=== PATIENT | male | born 1940 | race Caucasian/White ===

== ENCOUNTER 2020-11-25 17:00 | Inpatient (IN) | payer MEDICARE, OTHER ==
[~2020-11-25] VITALS: Ht 177.8 cm; Wt 81.5 kg
--- NOTE | 2020-11-25 17:21 | NUR ---
DR CRADOZA AT BS.
[2020-11-25] MEDS ORDERED: METOPROLOL 1 MG/ML, 5ML IVPush ONE ×2 (17:30→18:30)
[2020-11-25] MEDS ORDERED: SODIUM CHLORIDE FLUSH 10ML SYR IVF ONE (17:30)
--- NOTE | 2020-11-25 17:30 | NUR ---
REPEAT EKG DONE
[2020-11-25] MEDS ORDERED: METOPROLOL 1 MG/ML, 5ML ONE ×2 (17:39→18:45)
[2020-11-25 17:55] LABS: BASOPHILS % (AUTO) 1 % (0-1); EOSINOPHILS % (AUTO) 1 % (1-7); LYMPHOCYTES % (AUTO) 13 % (22-44); MEAN CORPUSCULAR HEMOGLOBIN 29.1 pg (27.5-34.5); MEAN CORPUSCULAR HGB CONC 32.1 g/dL (33.2-36.2); MEAN PLATELET VOLUME 7.3 fL (7.4-10.4); MONOCYTES % (AUTO) 9 % (2-9); NEUTROPHILS % (AUTO) 76 % (42-75); PLATELET COUNT 262 x10^3/uL (130-400); RED BLOOD COUNT 4.33 x10^6/uL (4.38-5.82); RED CELL DISTRIBUTION WIDTH 15.8 % (9.4-14.8)
[2020-11-25 17:56] LABS: MD NO
[2020-11-25 18:03] LABS: INTERNATIONAL NORMALIZED RATIO 1.38 (0.93-1.1); PROTHROMBIN TIME 14.6 Seconds (9.6-11.5)
[2020-11-25 18:04] LABS: ALANINE AMINOTRANSFERASE 38 U/L (12-78); ALBUMIN 2.9 g/dL (3.4-5.0); CALCIUM 9.2 mg/dL (8.5-10.1); CHLORIDE 105 mmol/L (98-107); CREATININE 1.51 mg/dL (0.7-1.3)
[2020-11-25 18:09] LABS: ALKALINE PHOSPHATASE 201 U/L (45-117); BILIRUBIN,TOTAL 1.9 mg/dL (0.2-1.0); TOTAL PROTEIN 7.8 g/dL (6.4-8.2)
--- NOTE | 2020-11-25 18:12 | NUR ---
U/S IN PROGRESS. LOPRESSOR GIVEN. PT'S NEPHEW IN ROOM
[2020-11-25 18:17] LABS: ANION GAP 4 mmol/L (5-15)
--- NOTE | 2020-11-25 19:01 | NUR ---
MONITOR: A-FIB, RATE 111-120. WILL UPDATE ERP
--- NOTE | 2020-11-25 19:10 | NUR ---
LOPRESSOR, 2ND DOSE, GIVEN. IV SITE PATENT. SIDE RAILS UP X2. CARDIAC MONITORING IN PROGRESS: A-FIB
[2020-11-25] MEDS ORDERED: ENOXAPARIN 60 MG/0.6 ML ONE (19:20)
[2020-11-25] MEDS: ENOXAPARIN 60 MG/0.6 ML SQ SCH (19:23)
--- NOTE | 2020-11-25 19:23 | NUR ---
LOVENOX GIVEN PER EMAR. HR: [id number]
--- NOTE | 2020-11-25 19:25 | NUR ---
URINAL EMPTIED OF 500ML URINE
[2020-11-25] MEDS ORDERED: METO25TA35 PO (19:29)
[2020-11-25] MEDS ORDERED: FURO20TA3 PO (19:29)
[2020-11-25] MEDS ORDERED: ATOR10TA9 PO (19:29)
[2020-11-25] MEDS ORDERED: WARF2.5T32 PO (19:29)
[2020-11-25] MEDS ORDERED: SPIR25TA5 PO (19:29)
--- NOTE | 2020-11-25 19:31 | NUR ---
DR CARDOZA AT BS
[2020-11-25] MEDS ORDERED: FUROSEMIDE 40 MG/4 ML ONE (19:41)
[2020-11-25] MEDS ORDERED: COLCHICINE 0.6 MG CAPSULE ONE (19:41)
--- NOTE | 2020-11-25 19:47 | NUR ---
EKG AT BS
--- NOTE | 2020-11-25 19:54 | NUR ---
LASIX AND COCHICINE GIVEN PER EMAR.
[2020-11-25] MEDS ORDERED: FUROSEMIDE 40 MG/4 ML IV ONE (20:00)
[2020-11-25] MEDS ORDERED: COLCHICINE 0.6 MG CAPSULE PO ONE (20:00)
--- NOTE | 2020-11-25 20:08 | NUR ---
TURKEY SANDWICH PROVIDED TO PT
[2020-11-25] MEDS ORDERED: OXYcodone IR 5MG TABLET PO PRN (21:00)
[2020-11-25] MEDS ORDERED: POLYETHYLENE GLYCOL 17 GM PACKET PO PRN (21:00)
[2020-11-25] MEDS ORDERED: Enoxaparin 1 mg/kg protocol SQ SCH (21:00)
[2020-11-25] MEDS: METOPROLOL TARTRATE 50 MG TAB PO SCH (21:00)
[2020-11-25] MEDS ORDERED: BISACODYL 10 MG SUPP PR PRN (21:00)
[2020-11-25] MEDS ORDERED: ONDANSETRON ODT 4 MG PO PRN (21:00)
[2020-11-25 21:20] LABS: TROPONIN I 0.042 ng/mL (0.000-0.045)
--- NOTE | 2020-11-25 22:08 | NUR ---
CALLED RECEIVING UNIT
--- NOTE | 2020-11-25 22:16 | NUR ---
PT REPORT TO HELDER GIMENEZ FOR ROOM 519
[2020-11-25 23:03] VITALS: BP 95/60
[2020-11-25] MEDS: SODIUM CHLORIDE FLUSH 10ML SYR IVF SCH (23:53)
[2020-11-25] MEDS: ATORVASTATIN 10 MG TABLET PO SCH (23:53)
[2020-11-26] VITALS: BP 93/59
[2020-11-26 02:04] VITALS: BP 87/55
[2020-11-26 02:45] LABS: BASOPHILS % (AUTO) 1 % (0-1); EOSINOPHILS % (AUTO) 2 % (1-7); LYMPHOCYTES % (AUTO) 17 % (22-44); MEAN CORPUSCULAR HEMOGLOBIN 29.6 pg (27.5-34.5); MEAN CORPUSCULAR HGB CONC 32.9 g/dL (33.2-36.2); MEAN PLATELET VOLUME 7.2 fL (7.4-10.4); MONOCYTES % (AUTO) 11 % (2-9); NEUTROPHILS % (AUTO) 70 % (42-75); PLATELET COUNT 247 x10^3/uL (130-400); RED BLOOD COUNT 3.92 x10^6/uL (4.38-5.82); RED CELL DISTRIBUTION WIDTH 15.2 % (9.4-14.8)
[2020-11-26 02:52] LABS: ANION GAP 3 mmol/L (5-15); CALCIUM 8.4 mg/dL (8.5-10.1); CHLORIDE 106 mmol/L (98-107); CREATININE 1.58 mg/dL (0.7-1.3)
[2020-11-26 02:57] LABS: TROPONIN I 0.045 ng/mL (0.000-0.045)
[2020-11-26 04:04] LABS: MD NO
[2020-11-26] MEDS: ACETAMINOPHEN 325 MG TABLET PO PRN (04:42)
[2020-11-26 07:42] VITALS: BP 107/62
[2020-11-26] MEDS: ENOXAPARIN 60 MG/0.6 ML SQ SCH (08:26)
[2020-11-26] MEDS: FUROSEMIDE 20 MG/2 ML IV SCH ×2 (08:27→17:23)
[2020-11-26] MEDS: METOPROLOL TARTRATE 50 MG TAB PO SCH ×2 (08:27→21:51)
[2020-11-26] MEDS: SPIRONOLACTONE 25 MG TABLET PO SCH (08:27)
[2020-11-26] MEDS: SENNA/DOCUSATE TABLET PO SCH (08:28)
[2020-11-26] MEDS: SODIUM CHLORIDE FLUSH 10ML SYR IVF SCH ×2 (08:28→21:51)
[2020-11-26 08:40] LABS: TROPONIN I 0.063 ng/mL (0.000-0.045)
[2020-11-26 12:40] VITALS: BP 93/61
[2020-11-26] MEDS: WARFARIN 1 MG TABLET PO-COUM SCH (19:04)
[2020-11-26 20:02] VITALS: BP 99/58
[2020-11-26] MEDS: ATORVASTATIN 10 MG TABLET PO SCH (21:51)
[2020-11-26] MEDS: ENOXAPARIN 80 MG/0.8 ML SQ SCH (21:51)
[2020-11-27 01:31] VITALS: BP 94/56
[2020-11-27] MEDS: ACETAMINOPHEN 325 MG TABLET PO PRN (02:12)
[2020-11-27 06:06] LABS: BASOPHILS % (AUTO) 1 % (0-1); EOSINOPHILS % (AUTO) 3 % (1-7); LYMPHOCYTES % (AUTO) 23 % (22-44); MEAN CORPUSCULAR HGB CONC 32.7 g/dL (33.2-36.2); MEAN PLATELET VOLUME 7.5 fL (7.4-10.4); MONOCYTES % (AUTO) 10 % (2-9); NEUTROPHILS % (AUTO) 64 % (42-75); PLATELET COUNT 281 x10^3/uL (130-400); RED BLOOD COUNT 4.06 x10^6/uL (4.38-5.82); RED CELL DISTRIBUTION WIDTH 15.3 % (9.4-14.8)
[2020-11-27 06:09] LABS: MD NO
[2020-11-27 06:22] LABS: ALBUMIN 2.5 g/dL (3.4-5.0); CALCIUM 8.8 mg/dL (8.5-10.1); CHLORIDE 105 mmol/L (98-107)
[2020-11-27 06:25] LABS: ANION GAP 7 mmol/L (5-15); CREATININE 1.58 mg/dL (0.7-1.3)
[2020-11-27] MEDS: FUROSEMIDE 20 MG/2 ML IV SCH ×2 (07:30→17:00)
[2020-11-27 07:47] VITALS: BP 83/55
[2020-11-27 08:44] VITALS: BP 89/57
[2020-11-27] MEDS: SPIRONOLACTONE 25 MG TABLET PO SCH (08:47)
[2020-11-27] MEDS: METOPROLOL TARTRATE 50 MG TAB PO SCH ×2 (08:47→19:49)
[2020-11-27] MEDS: SODIUM CHLORIDE FLUSH 10ML SYR IVF SCH ×2 (08:58→19:49)
[2020-11-27] MEDS: ENOXAPARIN 80 MG/0.8 ML SQ SCH ×2 (08:59→19:49)
[2020-11-27] MEDS: SENNA/DOCUSATE TABLET PO SCH (09:00)
[2020-11-27 15:52] VITALS: BP 104/62
[2020-11-27] MEDS: WARFARIN 1 MG TABLET PO-COUM SCH (17:37)
[2020-11-27 18:58] LABS: INTERNATIONAL NORMALIZED RATIO 1.39 (0.93-1.1); PROTHROMBIN TIME 14.7 Seconds (9.6-11.5)
[2020-11-27 19:13] VITALS: BP 99/61
[2020-11-27] MEDS: ATORVASTATIN 10 MG TABLET PO SCH (19:49)
[2020-11-28 00:51] VITALS: BP 96/63
[2020-11-28] MEDS: ACETAMINOPHEN 325 MG TABLET PO PRN (02:29)
[2020-11-28 04:56] LABS: BASOPHILS % (AUTO) 1 % (0-1); EOSINOPHILS % (AUTO) 4 % (1-7); LYMPHOCYTES % (AUTO) 22 % (22-44); MEAN CORPUSCULAR HEMOGLOBIN 29.5 pg (27.5-34.5); MEAN CORPUSCULAR HGB CONC 32.9 g/dL (33.2-36.2); MEAN PLATELET VOLUME 7.2 fL (7.4-10.4); MONOCYTES % (AUTO) 11 % (2-9); NEUTROPHILS % (AUTO) 63 % (42-75); PLATELET COUNT 303 x10^3/uL (130-400); RED BLOOD COUNT 3.66 x10^6/uL (4.38-5.82); RED CELL DISTRIBUTION WIDTH 15.6 % (9.4-14.8)
[2020-11-28 05:02] LABS: MD NO
[2020-11-28 05:16] LABS: ALBUMIN 2.3 g/dL (3.4-5.0); ANION GAP 6 mmol/L (5-15); CALCIUM 8.5 mg/dL (8.5-10.1); CHLORIDE 107 mmol/L (98-107)
[2020-11-28 06:33] VITALS: BP 100/58
[2020-11-28 07:58] VITALS: BP 98/56
[2020-11-28 08:00] VITALS: BP 111/63
[2020-11-28] MEDS: FUROSEMIDE 20 MG/2 ML IV SCH (08:01)
[2020-11-28] MEDS: METOPROLOL TARTRATE 50 MG TAB PO SCH (09:00)
[2020-11-28] MEDS: SPIRONOLACTONE 25 MG TABLET PO SCH (09:00)
[2020-11-28 09:33] VITALS: BP 88/55
[2020-11-28] MEDS: ENOXAPARIN 80 MG/0.8 ML SQ SCH (10:14)
[2020-11-28] MEDS: SENNA/DOCUSATE TABLET PO SCH (10:14)
[2020-11-28] MEDS: SODIUM CHLORIDE FLUSH 10ML SYR IVF SCH (10:14)
[2020-11-28 13:36] LABS: INTERNATIONAL NORMALIZED RATIO 1.63 (0.93-1.1); PROTHROMBIN TIME 17.2 Seconds (9.6-11.5)
[2020-11-28 14:21] VITALS: BP 102/63
[2020-11-28] MEDS ORDERED: FURO-93 PO (15:43)
[2020-11-28] MEDS ORDERED: Warfarin PO-COUM (15:43)
[2020-11-28] MEDS ORDERED: METO50TA82 PO (15:43)
[2020-11-28] MEDS ORDERED: METO-93 PO (16:09)
== END 2020-11-28 16:32 | disposition home or self-care (01) | DRG 291 ==
LOC: ED 17:44 → EDIP 20:50 → 5SO 22:59 → DCLOUNGE 11-28 16:23
PROVIDERS: ADMIT Family Medicine; ATTEND Family Medicine
DX: I13.0 Hypertensive heart and chronic kidney disease with heart failure and stage 1 through stage 4 chronic kidney disease, or unspecified chronic kidney disease (principal); I50.31 Acute diastolic (congestive) heart failure; D68.69 Other thrombophilia; I48.91 Unspecified atrial fibrillation; E78.5 Hyperlipidemia, unspecified; I08.1 Rheumatic disorders of both mitral and tricuspid valves; I50.811 Acute right heart failure; N18.9 Chronic kidney disease, unspecified; M10.9 Gout, unspecified; Z89.422 Acquired absence of other left toe(s); Z79.01 Long term (current) use of anticoagulants; Z82.0 Family history of epilepsy and other diseases of the nervous system; Z79.899 Other long term (current) drug therapy
CPT/HCPCS: 36415; 71045; 80048; 80053; 80069; 83735; 83880; 84100; 84443; 84484; 85025; 85610; 85730; 93005; 93306; 93970; G0378; J1650; J1940

== ENCOUNTER 2020-12-15 12:14 | Emergency (ER) | payer OTHER ==
[~2020-12-15] VITALS: Ht 177.8 cm; Wt 74.0 kg
[~2020-12-15 12:14] MED LIST: ATOR10TA9 PO; FURO-93 PO; FURO20TA3 PO; METO-93 PO; METO25TA35 PO; METO50TA82 PO; SPIR25TA5 PO; WARF2.5T32 PO; Warfarin PO-COUM
[2020-12-15] MEDS ORDERED: OXYcodone/APAP 5/325MG TABLET PO ONE ×2 (13:00→14:30)
[2020-12-15] MEDS ORDERED: KETOROLAC 30 MG/1 ML IM ONE (13:00)
[2020-12-15] MEDS ORDERED: OXYcodone/APAP 5/325MG TABLET ONE ×2 (13:01→14:29)
[2020-12-15] MEDS ORDERED: KETOROLAC 30 MG/1 ML ONE (13:01)
--- NOTE | 2020-12-15 13:08 | NUR ---
FUR VAULT ATTENDANT PER MAR.
[2020-12-15 13:15] LABS: BASOPHILS % (AUTO) 1 % (0-1); EOSINOPHILS % (AUTO) 2 % (1-7); LYMPHOCYTES % (AUTO) 13 % (22-44); MEAN CORPUSCULAR HEMOGLOBIN 29.4 pg (27.5-34.5); MEAN CORPUSCULAR HGB CONC 31.9 g/dL (33.2-36.2); MEAN PLATELET VOLUME 7.6 fL (7.4-10.4); MONOCYTES % (AUTO) 10 % (2-9); NEUTROPHILS % (AUTO) 74 % (42-75); PLATELET COUNT 248 x10^3/uL (130-400); RED BLOOD COUNT 4.19 x10^6/uL (4.38-5.82); RED CELL DISTRIBUTION WIDTH 16.2 % (9.4-14.8)
[2020-12-15 13:16] LABS: MD NO
--- NOTE | 2020-12-15 13:59 | NUR ---
ALL RESULTS ARE BACK AT THIS TIME. CHART UP FOR RECHECK.
--- NOTE | 2020-12-15 14:36 | NUR ---
N/O FOR US. MEDS ADMIN PER JAN. PEDAL PULSES HEARD BY DOPPLER.
[2020-12-15 14:39] LABS: INTERNATIONAL NORMALIZED RATIO 2.11 (0.93-1.1); PROTHROMBIN TIME 22.2 Seconds (9.6-11.5)
--- NOTE | 2020-12-15 15:18 | NUR ---
US AT BEDSIDE
--- NOTE | 2020-12-15 15:47 | NUR ---
ALL RESULTS ARE BACK AT THIS TIME. CHART UP FOR RECHECK.
[2020-12-15 17:08] VITALS: BP 105/78
--- NOTE | 2020-12-15 17:29 | NUR ---
LOIS NUNO APPLIED.
== END 2020-12-15 17:42 | disposition home or self-care (01) ==
LOC: ED 15:23
DX: M17.11 Unilateral primary osteoarthritis, right knee (principal); R60.0 Localized edema; M10.9 Gout, unspecified; I11.0 Hypertensive heart disease with heart failure; I50.9 Heart failure, unspecified; E78.5 Hyperlipidemia, unspecified; I48.91 Unspecified atrial fibrillation
CPT/HCPCS: 36415; 73564; 84550; 85025; 85610; 93971; 96372; 99285; J1885

== ENCOUNTER 2020-12-23 14:29 | Emergency (ER) | payer OTHER ==
[~2020-12-23] VITALS: Ht 175.3 cm; Wt 92.3 kg
[2020-12-23 15:24] LABS: BASOPHILS % (AUTO) 1 % (0-1); EOSINOPHILS % (AUTO) 4 % (1-7); LYMPHOCYTES % (AUTO) 18 % (22-44); MEAN CORPUSCULAR HEMOGLOBIN 29.8 pg (27.5-34.5); MEAN CORPUSCULAR HGB CONC 32.5 g/dL (33.2-36.2); MEAN PLATELET VOLUME 7.3 fL (7.4-10.4); MONOCYTES % (AUTO) 12 % (2-9); NEUTROPHILS % (AUTO) 67 % (42-75); PLATELET COUNT 220 x10^3/uL (130-400); RED BLOOD COUNT 4.09 x10^6/uL (4.38-5.82); RED CELL DISTRIBUTION WIDTH 16.2 % (9.4-14.8)
[2020-12-23 15:26] LABS: MD NO
--- NOTE | 2020-12-23 15:35 | NUR ---
HERE FOR BILAT LE EDEMA THAT HAS NOT IMPROVED SINCE PRIOR ED VISIT. TOOK ADVIL AT 1330. HX PER PT & NEPHEW. + PITTING PEDAL EDEMA, DIMINISHED PEDAL PULSES BILAT.
[2020-12-23 15:37] LABS: ALANINE AMINOTRANSFERASE 31 U/L (12-78); ANION GAP 5 mmol/L (5-15); CALCIUM 8.5 mg/dL (8.5-10.1); CHLORIDE 110 mmol/L (98-107); CREATININE 1.46 mg/dL (0.7-1.3)
[2020-12-23 15:41] LABS: ALKALINE PHOSPHATASE 146 U/L (45-117); BILIRUBIN,TOTAL 1.9 mg/dL (0.2-1.0); TOTAL PROTEIN 6.7 g/dL (6.4-8.2); TROPONIN I 0.034 ng/mL (0.000-0.045)
[2020-12-23] MEDS ORDERED: WARF-36 PO ×2 (15:47)
--- NOTE | 2020-12-23 16:45 | NUR ---
RESTING ON GURNEY, WATCHING TV, AWAITING DISPOSITION, MONITORING CONTINUING. NEPHEW IN ROOM.
[2020-12-23] MEDS ORDERED: FUROSEMIDE 40 MG TABLET PO ONE (17:00)
[2020-12-23] MEDS ORDERED: POTASSIUM CHLORIDE 10 MEQ TABLET.ER PO ONE (17:00)
[2020-12-23] MEDS ORDERED: FUROSEMIDE 40 MG TABLET ONE (17:36)
[2020-12-23] MEDS ORDERED: POTASSIUM CHLORIDE 20 MEQ TAB.ER.PRT ONE (17:36)
--- NOTE | 2020-12-23 17:46 | NUR ---
PT REPORT TO RUFINA JOHNSON RN. MIGUEL GIVEN TO ELIZABETH FOR PT ADMINISTRATION. PT TO BE DC'D
[2020-12-23 17:51] VITALS: BP 113/86
== END 2020-12-23 17:56 | disposition home or self-care (01) ==
LOC: ED 17:35
DX: R60.0 Localized edema (principal); I11.0 Hypertensive heart disease with heart failure; I50.1 Left ventricular failure, unspecified; I48.91 Unspecified atrial fibrillation; R94.31 Abnormal electrocardiogram [ECG] [EKG]; R07.9 Chest pain, unspecified; E78.5 Hyperlipidemia, unspecified; M10.9 Gout, unspecified
CPT/HCPCS: 36415; 71045; 80053; 83880; 84484; 85025; 93005; 99285